=== PATIENT | female | born 1970 | race Caucasian/White ===

== ENCOUNTER 2016-11-10 20:24 | Emergency (ER) | payer SELFPAY ==
[~2016-11-10] VITALS: Ht 165.1 cm; Wt 55.0 kg
[2016-11-10 20:26] VITALS: BP 145/88; PULSE 85; RESP 16; TEMP 98.2; O2SAT 98
--- NOTE | 2016-11-10 21:43 | PD ---
HPI Chief Complaint: Cold / Flu Symptoms Time Seen by Provider: 21:29 Travel History International Travel<30 days: No Contact w/Intl Traveler<30days: No Traveled to known affect area: No History of Present Illness HPI 46-year-old female with history of chronic bronchitis, tobaccoism, here for evaluation of sinus pressure and chest tightness that has been intermittent for the last 2 weeks. She states that when she wakes up in the morning she has cough productive of yellowish sputum. No hemoptysis. Slight dyspnea. States that she has tried her albuterol inhaler/nebulizer at home without significant improvement in symptoms. No fevers or chills. No known history of cardiac disease. No history of DVT or PE. States that her symptoms feel like bronchitis. PFSH Past Medical History Medical History: Denies Significant Hx Tetanus Vaccination: > 5 Years Influenza Vaccination: No ?: Not LMP: 11/02/16 Past Surgical History Surgical History: No Previous Surgery Social History Alcohol Use: Yes (3 XS WEEKLY) Tobacco Use: Yes (1PPD) Substance Use: No Allergies-Medications (Allergen,Severity, Reaction): Coded Allergies: No Known Allergies (Unverified , 11/10/16) Reported Meds & Prescriptions Reported Meds & Active Scripts Active No Active Prescriptions or Reported Medications Review of Systems Except as stated in HPI: all other systems reviewed are Neg Physical Exam Narrative GENERAL: Well-developed, well-nourished, sitting comfortably on stretcher, no acute distress. SKIN: Warm and dry. HEAD: Atraumatic. Normocephalic. EYES: Pupils equal and round. No scleral icterus. No injection or drainage. ENT: Mucous membranes pink and moist. NECK: Trachea midline. No JVD. CARDIOVASCULAR: Regular rate and rhythm. No murmur appreciated. RESPIRATORY: No accessory muscle use. Slight end expiratory wheezes bilaterally , no rales or rhonchi. Breath sounds equal bilaterally. GASTROINTESTINAL: Abdomen soft, non-tender, nondistended. MUSCULOSKELETAL: No obvious deformities. No clubbing. No cyanosis. No edema. NEUROLOGICAL: Awake and alert. No obvious cranial nerve deficits. Motor grossly within normal limits. Normal speech. PSYCHIATRIC: Appropriate mood and affect; insight and judgment normal. Data Data Last Documented VS Vital Signs Date Time Temp Pulse Resp B/P Pulse Ox O2 Delivery O2 Flow Rate FiO2 11/10/16 20:26 98.2 85 16 145/88 98 Room Air Orders Chest, Single Ap (11/10/16 ) Electrocardiogram (11/10/16 ) Influenzae A/B Antigen (11/10/16 21:33) Albuterol-Ipratropium Neb (Duoneb Neb) (11/10/16 21:45) Prednisone (Deltasone) (11/10/16 21:45) Basic Metabolic Panel (Bmp) (11/10/16 21:50) Ckmb (Isoenzyme) Profile (11/10/16 21:50) Complete Blood Count With Diff (11/10/16 21:50) D-Dimer (11/10/16 21:50) Magnesium (Mg) (11/10/16 21:50) Prothrombin Time / Inr (Pt) (11/10/16 21:50) Act Partial Throm Time (Ptt) (11/10/16 21:50) Troponin I (11/10/16 21:50) Ecg Monitoring (11/10/16 21:50) Iv Access Insert/Monitor (11/10/16 21:50) Oximetry (11/10/16 21:50) Sodium Chloride 0.9% Flush (Ns Flush) (11/10/16 22:00) Labs Laboratory Tests Test 11/10/16 21:59 White Blood Count 8.5 TH/MM3 Red Blood Count 4.63 MIL/MM3 Hemoglobin 13.7 GM/DL Hematocrit 40.1 % Mean Corpuscular Volume 86.6 FL Mean Corpuscular Hemoglobin 29.6 PG Mean Corpuscular Hemoglobin 34.2 % Concent Red Cell Distribution Width 13.2 % Platelet Count 285 TH/MM3 Mean Platelet Volume 8.2 FL Neutrophils (%) (Auto) 51.1 % Lymphocytes (%) (Auto) 38.8 % Monocytes (%) (Auto) 5.7 % Eosinophils (%) (Auto) 3.7 % Basophils (%) (Auto) 0.7 % Neutrophils # (Auto) 4.3 TH/MM3 Lymphocytes # (Auto) 3.3 TH/MM3 Monocytes # (Auto) 0.5 TH/MM3 Eosinophils # (Auto) 0.3 TH/MM3 Basophils # (Auto) 0.1 TH/MM3 CBC Comment DIFF FINAL Differential Comment Prothrombin Time 10.6 SEC Prothromb Time International 1.0 RATIO Ratio Activated Partial 29.5 SEC Thromboplast Time D-Dimer Quantitative (PE/DVT) 0.21 MG/L FEU Sodium Level 137 MEQ/L Potassium Level 3.4 MEQ/L Chloride Level 104 MEQ/L Carbon Dioxide Level 25.4 MEQ/L Anion Gap 8 MEQ/L Blood Urea Nitrogen 5 MG/DL Creatinine 0.61 MG/DL Estimat Glomerular Filtration 107 ML/MIN Rate Random Glucose 94 MG/DL Calcium Level 8.7 MG/DL Magnesium Level 2.1 MG/DL Total Creatine Kinase 91 U/L Troponin I LESS THAN 0.02 NG/ML MDM Medical Decision Making Medical Screen Exam Complete: Yes Emergency Medical Condition: Yes Interpretation(s) EKG: Sinus, rate 67, normal axis, normal intervals, Q waves in septal leads, no acute ischemic abnormality Differential Diagnosis Bronchitis, pneumonia, viral illness, URI, influenza, ACS unlikely, PE unlikely , sinusitis Narrative Course Vital signs show heart rate 85, blood pressure 145/80, pulse ox 90% on room air , oral temp of 98.2F. CBC is unremarkable. BMP is unremarkable. Cardiac enzymes are negative. D-dimer 0.21. Chest x-ray shows no acute disease. Influenza is negative. The patient was given 3 DuoNeb treatments, oral prednisone, and reports feeling significant improvement. She has had somewhat symptoms in the past and has been diagnosed with bronchitis. Given similar episodes in the past as well as duration of symptoms going on for 2 weeks, I will give the patient a prescription for a Z-Ilia. I will also give her prescription for prednisone. She is stable for discharge home with outpatient follow-up with a primary care physician this week. She was informed on when to return to the emergency department pitcher verbalizes understanding and agreement with plan. Diagnosis Primary Impression: Bronchitis Additional Instructions: Follow-up with a primary care physician this week. Return to the emergency department for worsening symptoms or any other concerns. Scripts Prednisone 50 Mg Tab50 Mg PO DAILY 5 Days Ref 0 Prov:Earl Boudreaux MD 11/10/16 Azithromycin (Zithromax Z-Ilia)250 Mg [id number] Mg PO DIRECTED #1 DSPK Ref 0 500 MG (2 tabs) day 1, then 1 tab days 2-5. Prov:Earl Boudreaux MD 11/10/16 Disposition: 01 DISCHARGE HOME Condition: Stable Earl Boudreaux MD Nov 10, 2016 21:43
[2016-11-10] MEDS: RESP: ALBUTEROL 2.5 MG/IPRATROPIUM 0.5 MG NEB (SCH) INH ×3 (21:44→22:17)
[2016-11-10] MEDS ORDERED: predniSONE 50 MG TAB PO ONE (21:45)
--- NOTE | 2016-11-10 21:52 | RADRPT ---
EXAM DATE/TIME: 11/10/2016 21:41 [facility] COMPARISON: No previous studies available for comparison. INDICATIONS : Shortness of breath, tightness in chest starting today MEDICAL HISTORY : None. SURGICAL HISTORY : None. ENCOUNTER: Initial ACUITY: 3 days PAIN SCORE: 0/10 LOCATION: Bilateral chest FINDINGS: A single view of the chest demonstrates the lungs to be symmetrically aerated without evidence of mas s, infiltrate or effusion. The cardiomediastinal contours are unremarkable. Osseous structures are intact. CONCLUSION: No acute disease. Cj Willard MD on November 10, 2016 at 21:51 Board Certified Radiologist. This report was verified electronically.
[2016-11-10] MEDS ORDERED: SODIUM CHLORIDE 0.9% FLUSH 5 ML FLUSH IVF PRN (22:00)
[2016-11-10 22:17] LABS: AUTOMATED NEUTROPHIL # 4.3 TH/MM3 (1.8-7.7); BASOPHIL # 0.1 TH/MM3 (0-0.2); BASOPHIL % 0.7 % (0.0-2.0); EOSINOPHIL # 0.3 TH/MM3 (0-0.4); EOSINOPHIL % 3.7 % (0.0-4.0); HEMATOCRIT 40.1 % (35.0-46.0); HEMO FLAGS DIFF FINAL; LYMPH % 38.8 % (9.0-44.0); LYMPHOCYTE # 3.3 TH/MM3 (1.0-4.8); MEAN CELL VOLUME 86.6 FL (80.0-100.0); MEAN CORPUSCULAR HEMOGLOBIN 29.6 PG (27.0-34.0); MEAN CORPUSCULAR HGB CONC 34.2 % (32.0-36.0); MONO % 5.7 % (0.0-8.0); NEUT % 51.1 % (16.0-70.0); PLATELET COUNT 285 TH/MM3 (150-450); RED BLOOD COUNT 4.63 MIL/MM3 (4.00-5.30); RED CELL DISTRIBUTION WIDTH 13.2 % (11.6-17.2); WHITE BLOOD COUNT 8.5 TH/MM3 (4.0-11.0)
[2016-11-10 22:37] LABS: ANION GAP 8 MEQ/L (5-15); BICARBONATE 25.4 MEQ/L (21.0-32.0); BLOOD UREA NITROGEN 5 MG/DL (7-18); CHLORIDE 104 MEQ/L (98-107); GLOMERULAR FILTRATION RATE 107 ML/MIN (>89); MAGNESIUM 2.1 MG/DL (1.5-2.5); POTASSIUM 3.4 MEQ/L (3.5-5.1); SODIUM (NA) 137 MEQ/L (136-145)
[2016-11-10 22:41] LABS: APTT (PATIENT) 29.5 SEC (24.3-30.1); PROTHROMBIN TIME - PATIENT 10.6 SEC (9.8-11.6)
[2016-11-10 22:48] LABS: CREATINE KINASE 91 U/L (26-192)
[2016-11-10] MEDS ORDERED: ZITHTAB PO (23:13)
[2016-11-10] MEDS ORDERED: PRED50 PO (23:13)
[2016-11-10] MEDS ORDERED: AZITHROMYCIN 250 MG TAB PO ONE (23:15)
--- NOTE | 2016-11-11 08:38 | EKG ---
Date Performed: 11/10/2016 Time Performed: 21:49:32 PTAGE: 46 years EKG: Sinus rhythm SEPTAL MYOCARDIAL INFARCTION ABNORMAL ECG NO PREVIOUS TRACING DOCTOR: Tyron Avila Interpretating Date/Time 11/11/2016 08:36:16
== END 2016-11-10 23:39 | disposition home or self-care (01) ==
LOC: NEPB 20:24
DX: J40 Bronchitis, not specified as acute or chronic (principal); R94.31 Abnormal electrocardiogram [ECG] [EKG]; R05 Cough; F17.210 Nicotine dependence, cigarettes, uncomplicated
CPT/HCPCS: 71010; 80048; 82550; 83735; 84484; 85025; 85379; 85610; 85730; 87804; 93005; 94640; 94664; 99284; J7512